=== PATIENT | male | born 1990 | race Caucasian/White ===

== ENCOUNTER 2020-08-23 12:00 | Emergency (ER) | payer BC, MEDICAID ==
[~2020-08-23] VITALS: Ht 172.7 cm; Wt 70.0 kg
--- NOTE | 2020-08-23 12:06 | NUR ---
PT JOCELIN FROM [facility]. 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 PT IS A EX-. PER PT, SI HAS BEEN OCCURING FOR THE LAST 6 MONTHS. PT CALM & COOPERATIVE WITH ED STAFF. PT CHANGED INTO GOWN. ALL BELONGINGS DOCUMENTED AND PLACED IN BAGS IN LOCKED LOCKER. SITTER IN VIEW. PT IN SAFE ENVIRONMENT. SI MEAL TRAY ORDERED.
--- NOTE | 2020-08-23 12:13 | NUR ---
PSYCH WOOD GRAINER AT BS
[2020-08-23] MEDS ORDERED: LORazepam 1MG TABLET PO ONE ×3 (12:30→19:00)
[2020-08-23 12:42] LABS: BASOPHILS % (AUTO) 1 % (0-1); EOSINOPHILS % (AUTO) 0 % (1-7); LYMPHOCYTES % (AUTO) 6 % (22-44); MEAN CORPUSCULAR HGB CONC 35.1 g/dL (33.2-36.2); MEAN PLATELET VOLUME 7.8 fL (7.4-10.4); MONOCYTES % (AUTO) 3 % (2-9); NEUTROPHILS % (AUTO) 90 % (42-75); PLATELET COUNT 258 x10^3/uL (130-400); RED BLOOD COUNT 5.34 x10^6/uL (4.38-5.82); RED CELL DISTRIBUTION WIDTH 13.4 % (9.4-14.8)
[2020-08-23 12:47] LABS: ALBUMIN 4.1 g/dL (3.4-5.0); ANION GAP 5 mmol/L (5-15); CALCIUM 9.2 mg/dL (8.5-10.1); CHLORIDE 109 mmol/L (98-107)
[2020-08-23 12:49] LABS: SALICYLATE LEVEL < 1.7 mg/dL (2.8-20.0)
[2020-08-23] MEDS ORDERED: LORazepam 1MG TABLET ONE ×2 (12:50→19:14)
[2020-08-23 12:59] LABS: ALANINE AMINOTRANSFERASE 25 U/L (12-78); ALKALINE PHOSPHATASE 95 U/L (45-117); BILIRUBIN,TOTAL 0.3 mg/dL (0.2-1.0); CREATININE 0.92 mg/dL (0.7-1.3); TOTAL PROTEIN 8.5 g/dL (6.4-8.2)
--- NOTE | 2020-08-23 13:06 | NUR ---
REPORT TO VICTORINA STAHL. PT TRANSFERRED TO [facility]
--- NOTE | 2020-08-23 13:06 | NUR ---
REPORT FROM ASHKAN PRAJAPATI. PT SITTING IN ROOM EATING LUNCH, ROOM SECURED, SITTER OUTSIDE OF ROOM FOR SAFETY.
[2020-08-23 13:15] LABS: AMPHETAMINE SCREEN, URINE Negative (Negative); BARBITURATE SCREEN, URINE Negative (Negative); BENZODIAZEPINE SCREEN, URINE Negative (Negative); CANNABINOID SCREEN, URINE Positive (Negative); COCAINE SCREEN, URINE Negative (Negative); METHADONE SCREEN, URINE Negative (Negative); OPIATE SCREEN, URINE Negative (Negative)
[2020-08-23] MEDS ORDERED: TRAZODONE 100MG TABLET PO PRN (13:30)
--- NOTE | 2020-08-23 14:43 | NUR ---
PACKET FAXED TO [facility] AND [facility]
--- NOTE | 2020-08-23 18:06 | NUR ---
Pt provided with ensure per request for lunch and dinner now. Pt has been on hospital bed.
--- NOTE | 2020-08-23 19:04 | NUR ---
Bedside report to VICTORINA Mcbride, to assume full care. Pt in bed watching TV. All belongings went home with mother.
--- NOTE | 2020-08-23 19:18 | NUR ---
pt medicated per emar. nadn. sitter outside room. garage doors secured. belongings were sent home with mother. susy
[2020-08-23 19:33] VITALS: BP 129/86
--- NOTE | 2020-08-23 19:36 | NUR ---
PT RESTING IN BED WATCHING THE OFFICE. VSS. NO ADDITIONAL NEEDS AT THIS TIME PT STATES HE HAS PLAN TO END HIS LIFE WITH A GUN BUT HAS NOT INTENDED ON WORKING OUT THIS PLN DUE TO HELP FROM CO WORKERS. STATES HE ATTAMPTED TO OD ON COKE 2 YEARS AGO AND SAID HE HAS NOT TOLD ANYONE ABOUT THIS. SECURITY MEASURES STRILL PUT INTO PLACE. SITTER OUTSIDE ROOM AND HGARAGE DOORS SECURED. PT CALM AND COOPERATIVE. WCTM.
--- NOTE | 2020-08-23 20:22 | NUR ---
LATE ENTRY. BEDSIDE REPORT FROM [place] AT [facility].
--- NOTE | 2020-08-23 20:57 | NUR ---
Patient is SLEEPING comfortably in bed. EYES CLOSED. Bed in lowest, rails engaged, call light on lap. Vital Signs within normal limits. WCTM.
--- NOTE | 2020-08-23 23:00 | NUR ---
Patient is sleeping comfortably in bed. eyes closed. Bed in lowest, rails engaged, call light on lap. Vital Signs within normal limits. WCTM. safety precautions still put into place.
--- NOTE | 2020-08-24 01:21 | NUR ---
RPatient is resting comfortably in bed WATCHING TV. PT GIVEN ICE WATER. ASKED PT IF HE WAS HUNGRY BUT DID NOT WANT TO EAT ANYTHING. Bed in lowest, rails engaged, call light on lap. Vital Signs within normal limits. WCTM. SAFETY PRECAUTIONS IN PLACE.
--- NOTE | 2020-08-24 01:49 | NUR ---
break rn= pt resting in bed in si secure room, pt has sitter at pt door. pt denied any current wants or needs at this time.
--- NOTE | 2020-08-24 02:47 | NUR ---
Patient is resting comfortably in bed. Bed in lowest, rails engaged, call light on lap. Vital Signs within normal limits. WCTM.
--- NOTE | 2020-08-24 03:49 | NUR ---
Patient is sleeping comfortably in bed. eyes closed. Bed in lowest, rails engaged, call light on lap. Vital Signs within normal limits. WCTM. breathing even and unlabored.
--- NOTE | 2020-08-24 05:32 | NUR ---
Patient is sleeping comfortably in bed. Eyes closed. Bed in lowest, rails engaged, call light on lap. Vital Signs within normal limits. WCTM. safety precautions in place.
--- NOTE | 2020-08-24 05:43 | NUR ---
WRONG INSURANCE WAS LOADED INTO PT'S ACCT. LOADED WAS [employer] WITH A DIFFERENT NAME THAN PT'S, PT HAS [facility]. HAVING IDANIA GARCIA TAKE A LOOK AT PT
--- NOTE | 2020-08-24 06:18 | NUR ---
PACKET FAXED TO [facility]
--- NOTE | 2020-08-24 06:48 | NUR ---
[facility] WILL TAKE LONG COVID COMES BACK NEGATIVE
--- NOTE | 2020-08-24 06:55 | NUR ---
GAVE REPORT TO DELGADO PRAJAPATI. TRANSFER OF CARE.
--- NOTE | 2020-08-24 07:23 | NUR ---
PT IN GOWN IN [facility]. PT DENIES ANY NEEDS AT THIS TIME AND HAS SITTER OUTSIDE OF ROOM FOR DIRECT OBSERVATION OF PT AT THIS TIME.
--- NOTE | 2020-08-24 09:41 | NUR ---
REPORT OF PT TO VICTORINA CHAVEZ. ALL QUESTIONS ANSWERED.
[2020-08-24] MEDS ORDERED: AMIT25TA PO (12:59)
[2020-08-24] MEDS ORDERED: FLUO20TA25 PO (12:59)
[2020-08-24] MEDS ORDERED: SUMA50TA3 PO (12:59)
== END 2020-08-24 10:12 | disposition other institution (70) ==
LOC: EDBD 12:00 → ED 14:07
DX: F33.9 Major depressive disorder, recurrent, unspecified (principal); R45.851 Suicidal ideations; R51.9 Headache, unspecified; Z20.822 Contact with and (suspected) exposure to COVID-19
CPT/HCPCS: 36415; 70450; 80053; 80299; 80307; 80320; 80329; 84443; 85025; 87635; 99284; G0480

== ENCOUNTER 2020-08-24 09:20 | Inpatient (IN) | payer BC ==
[~2020-08-24] VITALS: Ht 175.3 cm; Wt 73.8 kg
[2020-08-24] MEDS ORDERED: ONDANSETRON ODT 4 MG PO PRN (10:00)
[2020-08-24] MEDS ORDERED: BISACODYL 10 MG SUPP PR PRN (10:00)
[2020-08-24] MEDS ORDERED: POLYETHYLENE GLYCOL 17 GM PACKET PO PRN (10:00)
[2020-08-24] MEDS ORDERED: DOCUSATE 100 MG CAPSULE PO PRN (10:00)
[2020-08-24] MEDS ORDERED: PLEASE ENTER HEIGHT AND WEIGHT MC SCH (11:00)
[2020-08-24 11:06] VITALS: BP 131/84
[2020-08-24] MEDS ORDERED: FLUO20TA25 PO (12:59)
[2020-08-24] MEDS ORDERED: SUMA50TA3 PO (12:59)
[2020-08-24] MEDS ORDERED: AMIT25TA PO (12:59)
[2020-08-24 16:30] LABS: MICROSCOPIC NOT IND
[2020-08-24] MEDS ORDERED: HYDROXYZINE PAMOATE 50MG CAP PO PRN (16:30)
[2020-08-24] MEDS ORDERED: ACETAMINOPHEN 325 MG TABLET PO PRN (18:00)
[2020-08-24] MEDS ORDERED: NAPROXEN 500 MG TABLET PO PRN (18:00)
[2020-08-24] MEDS: ACETAMINOPHEN 325 MG TABLET PO PRN (18:39)
[2020-08-24 19:40] VITALS: BP 132/79
[2020-08-24] MEDS ORDERED: DOXEPIN 25 MG CAPSULE PO SCH (21:00)
[2020-08-25 05:15] LABS: BASOPHILS % (AUTO) 0 % (0-1); EOSINOPHILS % (AUTO) 3 % (1-7); LYMPHOCYTES % (AUTO) 11 % (22-44); MEAN CORPUSCULAR HEMOGLOBIN 31.2 pg (27.5-34.5); MEAN CORPUSCULAR HGB CONC 35.4 g/dL (33.2-36.2); MEAN PLATELET VOLUME 7.8 fL (7.4-10.4); MONOCYTES % (AUTO) 4 % (2-9); NEUTROPHILS % (AUTO) 82 % (42-75); PLATELET COUNT 277 x10^3/uL (130-400); RED BLOOD COUNT 5.56 x10^6/uL (4.38-5.82); RED CELL DISTRIBUTION WIDTH 13.6 % (9.4-14.8)
[2020-08-25 05:27] LABS: ANION GAP 7 mmol/L (5-15); CALCIUM 9.2 mg/dL (8.5-10.1); CHLORIDE 106 mmol/L (98-107); CHOLESTEROL, TOTAL 251 mg/dL (140-239); CREATININE 1.02 mg/dL (0.7-1.3); TRIGLYCERIDES 93 mg/dL (50-200); VLDL CHOLESTEROL 19 mg/dL (0-25)
[2020-08-25 05:54] LABS: HDL CHOL % 20 % (26-37); HDL CHOLESTEROL (DIRECT) 50 mg/dL (40-60); LDL CHOLESTEROL,CALCULATED 182 mg/dL (54-169); LDL/HDL RATIO 3.6 (0.5-3.0)
[2020-08-25 07:21] VITALS: BP 124/86
[2020-08-25] MEDS: SERTRALINE 100MG TABLET PO SCH (09:22)
[2020-08-25 19:48] VITALS: BP 110/73
[2020-08-25] MEDS: DOXEPIN 25 MG CAPSULE PO SCH (20:43)
[2020-08-26] MEDS: SERTRALINE 100MG TABLET PO SCH (08:19)
[2020-08-26] MEDS: AZITHROMYCIN 500 MG TABLET PO SCH (08:20)
[2020-08-26 08:28] VITALS: BP 100/66
[2020-08-26] MEDS ORDERED: AZITHROMYCIN 500 MG TABLET PO SCH (09:00)
[2020-08-26 19:27] VITALS: BP 123/80
[2020-08-26] MEDS: ACETAMINOPHEN 325 MG TABLET PO PRN (19:44)
[2020-08-26] MEDS: DOXEPIN 25 MG CAPSULE PO SCH (22:01)
[2020-08-27 07:27] VITALS: BP 105/72
[2020-08-27] MEDS: SERTRALINE 100MG TABLET PO SCH (08:54)
[2020-08-27] MEDS: AZITHROMYCIN 500 MG TABLET PO SCH (08:54)
[2020-08-27 19:28] VITALS: BP 107/75
[2020-08-27] MEDS ORDERED: ALUMINUM/MAG/SIMETHICONE 30 ML UDC PO PRN (20:00)
[2020-08-27] MEDS: DOXEPIN 25 MG CAPSULE PO SCH (20:30)
[2020-08-28 07:47] VITALS: BP 113/74
[2020-08-28] MEDS: AZITHROMYCIN 500 MG TABLET PO SCH (09:00)
[2020-08-28] MEDS: SERTRALINE 100MG TABLET PO SCH (09:00)
[2020-08-28] MEDS ORDERED: SERT100T32 PO (13:35)
[2020-08-28] MEDS ORDERED: HYDR50CA2 PO (13:35)
[2020-08-28] MEDS ORDERED: AZIT500T10 PO (13:35)
[2020-08-28] MEDS ORDERED: DOXE25CA PO (13:35)
== END 2020-08-28 14:00 | disposition home or self-care (01) | DRG 885 ==
LOC: 3E 10:17
PROVIDERS: ADMIT Psychiatry & Neurology Psychosomatic Medicine; ATTEND Psychiatry & Neurology Psychosomatic Medicine
DX: F33.2 Major depressive disorder, recurrent severe without psychotic features (principal); J18.9 Pneumonia, unspecified organism; R45.851 Suicidal ideations; F41.9 Anxiety disorder, unspecified; G43.909 Migraine, unspecified, not intractable, without status migrainosus; G47.00 Insomnia, unspecified; Z79.899 Other long term (current) drug therapy; Z72.89 Other problems related to lifestyle
CPT/HCPCS: 36415; 71045; 71250; 80048; 80061; 81003; 82607; 84439; 84443; 85025; 93005